=== PATIENT | male | born 1975 | race Caucasian/White ===

== ENCOUNTER → 2016-10-04 | Outpatient (CLI) | payer MEDICAID ==
--- NOTE | 2016-10-04 17:45 | DX ---
PA and lateral chest History: Cough, recent pneumonia. Comparison: PA and lateral chest August 22, 2016 Findings: Previously noted left lower lobe consolidation has resolved. There is no pneumothorax or p leural effusion. The heart and pulmonary vasculature are normal. The bones are normal. Impression: Interval resolution of previously noted left lower lobe pneumonia..
== END ==
LOC: FIMAGING 14:11
PROVIDERS: ATTEND Physician Assistant
DX: R05 Cough (principal)

== ENCOUNTER 2017-11-29 00:22 | Emergency (ER) | payer OTHER, MEDICAID ==
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
[2017-11-29 00:51] LABS: PLATELET COUNT 213 10^3/uL (150-400)
[2017-11-29 01:10] VITALS: RESP 18; TEMP 97.9; O2SAT 96
[2017-11-29] MEDS ORDERED: IOPAMIDOL (ISOVUE-300) 100 ML BTL ONE (01:57)
[2017-11-29 02:36] VITALS: BP 130/80; PULSE 82
== END 2017-11-29 02:46 | disposition home or self-care (01) ==
LOC: EDUNIT#
DX: S49.92XA Unspecified injury of left shoulder and upper arm, initial encounter (principal); F10.920 Alcohol use, unspecified with intoxication, uncomplicated; V49.49XA Driver injured in collision with other motor vehicles in traffic accident, initial encounter; Y92.410 Unspecified street and highway as the place of occurrence of the external cause; Y99.8 Other external cause status; Y93.89 Activity, other specified
CPT/HCPCS: G0480; Q9967